=== PATIENT | male | born 1955 | race Caucasian/White ===

== ENCOUNTER → 2020-04-05 | Outpatient (CLI) | payer SELFPAY ==
--- NOTE | 2020-04-05 09:40 | Diagnostic Imaging Report ---
CT cardiac calcium score. Indication: High cholesterol, hypertension. There are no prior studies available for comparison. The calcium score was calculated in the usual manner. The total calcium score is 0.0 (please see attached report). The CT images show the heart size is within normal limits. There are no coronary artery calcifications evident although aortic valvular calcifications are visualized. The ascending aorta is not abnormally dilated. There is no obvious mediastinal or hilar adenopathy. The lungs and the upper abdomen, where visualized, are unremarkable for an acute abnormality. The bone windows show no sign of a fracture or of a destructive lesion. Impression: 1. The CT cardiac calcium score is 0.0 (please see attached report). 2. There is no acute cardiopulmonary abnormality identified. Dictated by: Dictated on workstation # [id number]
== END ==
LOC: RAD FS 08:47
PROVIDERS: ATTEND Family Medicine
DX: Z13.220 Encounter for screening for lipoid disorders (principal); E78.00 Pure hypercholesterolemia, unspecified; I10 Essential (primary) hypertension
CPT/HCPCS: 75571